=== PATIENT | male | born 1965 | race African-American/Black ===

== ENCOUNTER → 2018-12-04 13:18 | Outpatient (CLI) | payer MEDICAID, SELFPAY ==
[2018-12-04 13:57] LABS: Basophils % 0.5 % (0.1-2.0); Eosinophils % 1.1 % (0.1-12.0); Hematocrit 55.7 % (42.0-52.0); Hemoglobin 17.9 g/dL (14.1-18.0); Lymphocytes # 1.2 K/mm3 (0.7-4.5); Lymphocytes % 31.7 % (10-50); Mean Corpuscular HGB Conc 32.2 g/dL (31.8-35.4); Mean Corpuscular Hemoglobin 30.9 pg (27.0-31.2); Mean Corpuscular Volume 96.2 fl (80-94); Mean Platelet Volume 8.4 fl (7.4-10.4); Monocytes # 0.2 K/mm3 (0.1-1.0); Monocytes % 6.4 % (1.7-9.3); Neutrophils # 2.3 K/mm3 (1.8-7.8); Neutrophils % 60.4 % (37.0-80.0); Platelet Count 280 K/mm3 (142-424); Red Blood Count 5.79 M/mm3 (4.60-6.20); Red Cell Distribution Width 12.6 % (11.5-17.5); White Blood Count 3.8 K/mm3 (4.8-10.8)
[2018-12-04 16:16] LABS: Alanine Aminotransferase 30 U/L (12-78); Albumin Level 3.8 gm/dL (3.4-5.0); Albumin/Globulin Ratio 1.1 (1.1-1.8); Alkaline Phosphatase 111 U/L (46-116); Anion Gap 17.3 mEq/L (5-15); Aspartate Amino Transferase 20 U/L (15-37); Bilirubin,Total 0.7 mg/dL (0.2-1.0); Blood Urea Nitrogen 8 mg/dL (7-18); Calcium 9.3 mg/dL (8.5-10.1); Carbon Dioxide 26 mmol/L (21.0-32.0); Chloride 103 mmol/L (98-107); Chol/HDL Ratio 3.4 (1-3.5); Cholesterol 171 mg/dL (140-200); Creatinine,Serum 1.23 mg/dL (0.70-1.30); Estimated Glomerular Filt Rate 61 ml/min (>60); GFR (African American) 74 ML/MIN (>60); Globulin 3.5 gm/dl (1.3-3.2); Glucose 123 mg/dL (74-106); HDL Cholesterol 50 mg/dL (27-67); LDL Cholesterol 84 mg/dL (0-130); Potassium 3.3 mmoL/L (3.5-5.1); Sodium 143 mmol/L (136-145); Total Protein,Serum 7.3 gm/dL (6.4-8.2); Triglycerides 183 mg/dL (30-200); VLDL Cholesterol 37 mg/dL (0-40)
[2018-12-04 16:54] LABS: Free T4 (Free Thyroxine) 0.84 ng/dl (0.76-1.46)
[2018-12-06 05:08] LABS: Hep A Ab, IgM Negative (Negative); Hep A Ab, Total Positive (Negative); Hep B Core Ab, Total Negative (Negative)
[2018-12-06 10:59] LABS: HIV Screen 4th Generation wRfx Non Reactive (Non Reactive); Hep B Surface Ab, Qual Non Reactive (.); Hepatitis C Antibody 0.1 s/co ratio (0.0-0.9)
== END ==
PROVIDERS: Visit Provider Nurse Practitioner Family
DX: F19.90 Other psychoactive substance use, unspecified, uncomplicated (principal); R53.83 Other fatigue; E66.3 Overweight; Z11.4 Encounter for screening for human immunodeficiency virus [HIV]
CPT/HCPCS: 80053; 80061; 84439; 85025; 86703; 86704; 86706; 86708; 87380; G0432